=== PATIENT | male | born 1975 | race Caucasian/White ===

== ENCOUNTER → 2019-02-28 | Outpatient (CLI) | payer BC ==
--- NOTE | 2019-02-28 22:50 | CONS ---
CONSULTATION DATE OF SERVICE: 02/28/2019 43-year-old gentleman has been evaluated in the sleep center for possible obstructive sleep apnea-hypopnea syndrome. HISTORY OF PRESENT ILLNESS/SLEEP WAKE EVALUATION: The patient has been diagnosed with obstructive sleep apnea-hypopnea syndrome about 3 years ago, was started on treatment with CPAP, but at that time she was not able to use CPAP equipment and CPAP equipment has been returned. SLEEP SCHEDULE: At the present time, the patient's sleep schedule from 1:00 am to 7 a.m. on working days and from 11 p.m. to 7:00 am on weekends. FALLING ASLEEP: No problem with falling asleep, although patient has TV set in bedroom. DURING SLEEP: He sleeps in different positions. According to his family, he has loud snoring. DURING THE DAY/SLEEP WAKE EVALUATION: In the morning patient wakes up tired and feeling sleepy during the day. [place] Sleepiness Scale significantly increased to 14. The patient takes up to 2 naps a day at noon at and at 9:00 pm. PAST MEDICAL HISTORY: Positive for hypertension. The patient increased his weight for the last 1 year about 15 pounds. PAST SURGICAL HISTORY: Appendectomy, right ankle surgery for fracture. MEDICATIONS: Losartan. SOCIAL HISTORY: Positive history of smoking for about 10 pack/years; quit 13 years ago. Alcohol consumption rarely. FAMILY HISTORY: Hypertension, heart problems, sleep apnea, snoring, cancer. REVIEW OF SYSTEMS: Snoring, sleepiness during the day. PHYSICAL EXAM: A gentleman without distress. BP 186/93, HR 92, RR 16, height 6 feet 0 inches, weight 378 pounds. Body mass index 51.1. Neck 18-1/2 inches in circumference. Temperature 98.4. Oxygen saturation: 96%. Oropharynx extremely low position of soft palate. Mallampati 4. Some restriction of nasal breathing. Neck Supple, no JVD. Thyroid is not palpable. LUNGS Clear to percussion and to auscultation. Good air exchange. No wheezing or rhonchi. HEART S1, S2 regular. No murmurs, gallops, or rubs. ABDOMEN: Obese. Soft and nontender. Bowel sounds are present. No organomegaly appreciated. EXTREMITIES No clubbing or cyanosis. INTELLIGENCE APPLICATIONS Awake, alert, and oriented X3. Cranial nerves 2 to 7 intact. There is no fasciculation or atrophy. noted. No focal deficits observed. IMPRESSION: 1. History of obstructive sleep apnea-hypopnea syndrome, loud snoring, extremely low position of soft palate, wide neck, sleepiness, [place] Sleepiness Scale increased to 14, obstructive sleep apnea-hypopnea syndrome. 2. Obesity, body mass index 51.1. 3. Hypertension. 4. Status post appendectomy. 5. Status post right ankle surgery for fracture. PLAN: 1. Home sleep apnea test for evaluation of patient's breathing during sleep. 2. CPAP/BiPAP titration if sleep study confirms obstructive sleep apnea-hypopnea syndrome. 3. Preferable position during sleep on the side. 4. No driving if patient feels any sleepiness. 5. I will see patient for follow up visit to explain results of testing and following plan. Thank you very much for referring this patient in consultation. Sincerely, Elia Douglas MD, PhD, FAASM Diplomat of [place] [employer] [place] [employer] Assistant [facility] [employer] MMODL / MARVINN: [id number] /
== END ==
LOC: SLEEP 14:29
PROVIDERS: ATTEND Internal Medicine
DX: G47.33 Obstructive sleep apnea (adult) (pediatric) (principal); E66.9 Obesity, unspecified; I10 Essential (primary) hypertension; Z90.49 Acquired absence of other specified parts of digestive tract; Z98.890 Other specified postprocedural states; Z68.43 Body mass index [BMI] 50.0-59.9, adult; Z87.891 Personal history of nicotine dependence; Z79.899 Other long term (current) drug therapy
CPT/HCPCS: 99211